=== PATIENT | female | born 1965 | race African-American/Black ===

== ENCOUNTER 2022-11-30 18:10 | Emergency (ER) | payer OTHER ==
[~2022-11-30] VITALS: Ht 175.3 cm; Wt 82.0 kg
[2022-11-30 18:18] VITALS: BP 176/89
== END 2022-11-30 23:24 | disposition left against medical advice (07) ==
LOC: ER 18:10
DX: Z53.21 Procedure and treatment not carried out due to patient leaving prior to being seen by health care provider (principal); Z98.890 Other specified postprocedural states